=== PATIENT | male | born 1950 | race Caucasian/White ===

== ENCOUNTER 2017-10-12 12:00 | Inpatient (IN) | payer MEDICAID ==
[~2017-10-12] VITALS: Ht 175.3 cm; Wt 73.8 kg
[2017-10-12] MEDS ORDERED: CHOLESTEROL MED (12:03)
[2017-10-12] MEDS ORDERED: HTN (12:03)
[2017-10-12 13:14] LABS: BASOPHILS % (AUTO) 0.5 % (0.0-2.0); EOSINOPHILS % (AUTO) 2.9 % (1.0-6.0); HEMATOCRIT 51.2 % (41-53); HEMOGLOBIN 17.1 g/dL (13.5-17.5); LYMPHOCYTES # (AUTO) 2.1 K/uL (1.0-4.8); LYMPHOCYTES % (AUTO) 22.4 % (22.0-44.0); MEAN CORPUSCULAR HEMOGLOBIN 30.9 pg (26.0-34.0); MEAN CORPUSCULAR HGB CONC 33.4 G/dL (31.0-37.0); MEAN CORPUSCULAR VOLUME 93 fL (80-100); MONOCYTES # (AUTO) 1.5 K/uL (0.1-1.0); MONOCYTES % (AUTO) 15.3 % (2.0-9.0); NEUTROPHILS # (AUTO) 5.6 K/uL (1.8-7.7); NEUTROPHILS % (AUTO) 58.9 % (40.0-70.0); PLATELET COUNT (AUTO) 127 K/uL (150-450); RED BLOOD CELL COUNT(AUTO) 5.54 MIL/uL (4.50-5.90); RED CELL DISTRIBUTION WIDTH 13.9 % (11.5-14.5)
[2017-10-12] MEDS ORDERED: HEPARIN SODIUM,PORCINE 5,000 UNITS/ML VIAL IVP ONE (13:15)
[2017-10-12] MEDS ORDERED: DILTIAZEM HCL 5 MG/ML 5 ML VIAL IVP ONE (13:15)
[2017-10-12] MEDS ORDERED: HEPARIN SODIUM 25000 UNITS/D5W 250 ML IV PRN (13:15)
[2017-10-12] MEDS ORDERED: HEPARIN SODIUM,PORCINE 5,000 UNITS/ML VIAL IVP PRN ×2 (13:15)
[2017-10-12 13:22] LABS: APPEARANCE,URINE CLEAR (CLEAR); BILIRUBIN,URINE NEGATIVE (NEGATIVE); GLUCOSE, URINE (UA) NEGATIVE (NEGATIVE); KETONES,URINE NEGATIVE (NEGATIVE); LEUKOCYTE ESTERASE ,URINE NEGATIVE (NEGATIVE); NITRATE,URINE NEGATIVE (NEGATIVE); OCCULT BLOOD,URINE NEGATIVE (NEGATIVE); PH,URINE 6.5 (5.0-8.0)
[2017-10-12 13:30] LABS: ANION GAP 4 mmol/L (8-16); CALCIUM, TOTAL 9.1 mg/dL (8.8-10.5); CARBON DIOXIDE 31 mmol/L (22-29); CHLORIDE 103 mmol/L (98-107); CREATININE 1.31 mg/dL (0.60-1.30); GLOMERULAR FILTR. RATE CALC 55 mL/min (>60); GLUCOSE,RANDOM 94 mg/dL (70-110); POTASSIUM 3.3 mmol/L (3.5-5.1); SODIUM SERUM 138 mmol/L (136-145); UREA NITROGEN, BLOOD 22 mg/dL (7-18)
[2017-10-12 13:31] LABS: INR 1.2 (0.9-1.1); PROTHROMBIN TIME 12.9 SEC (9.4-11.6)
[2017-10-12 13:36] LABS: ALANINE AMINOTRANSFERASE 35 U/L (12-78); ALBUMIN 3.5 g/dL (3.4-5.0); ALKALINE PHOSPHATASE 125 U/L (46-116); ASPARTATE AMINOTRANSFERASE 37 U/L (15-37); CREATINE KINASE, TOTAL 47 U/L (39-308); TOTAL PROTEIN, SERUM 8.3 g/dL (6.4-8.2)
[2017-10-12 13:39] LABS: B-TYPE NATRIURETIC PEPTIDE 886 pg/mL (0-100)
[2017-10-12 13:40] LABS: PROTEIN,URINE POS 1+ (NEGATIVE)
[2017-10-12 13:51] LABS: RBC,URINE 0-2 /HPF (0-2); WBC,URINE 0-2 /HPF (0-5)
[2017-10-12 13:52] LABS: BACTERIA,URINE None Seen /HPF (None Seen); RENAL EPITHELIAL CELLS,URINE Rare /LPF (None Seen); SQUAMOUS EPITHELIAL CELL,UR Rare /LPF (None Seen)
[2017-10-12] MEDS ORDERED: ACETAMINOPHEN 325 MG TABLET PO PRN (15:30)
[2017-10-12] MEDS ORDERED: ONDANSETRON HCL 4 MG/2 ML VIAL IVP PRN ×2 (15:30→22:30)
[2017-10-12] MEDS ORDERED: 0.9% SODIUM CHLORIDE 10 ML SYRINGE IVP PRN (15:30)
[2017-10-12] MEDS ORDERED: DILTIAZEM HCL 125 MG in DEXTROSE 5%-WATER 100 ML IV PRN ×2 (15:30→22:59)
[2017-10-12] MEDS ORDERED: PETROLATUM,WHITE 5 GM PACKET JELLY TP ONE (15:30)
[2017-10-12] MEDS ORDERED: POTASSIUM CHLORIDE 20 MEQ ER TABLET PO ONE (16:00)
[2017-10-12] MEDS ORDERED: DIGOXIN 250 MCG/ML 2 ML AMP IVP ONE ×4 (16:00→21:45)
[2017-10-12 20:00] VITALS: BP 166/112
[2017-10-12] MEDS: ASPIRIN 81 MG EC TABLET PO SCH (20:43)
[2017-10-12] MEDS: ATORVASTATIN CALCIUM 20 MG TABLET PO SCH (20:43)
[2017-10-12] MEDS: METOPROLOL TARTRATE 25 MG TABLET PO SCH (20:43)
[2017-10-12] MEDS ORDERED: LORazepam 2 MG/ML VIAL IVP PRN (21:00)
[2017-10-12] MEDS ORDERED: LABETALOL HCL 5 MG/ML 20 ML VIAL IVP PRN (21:45)
[2017-10-12] MEDS ORDERED: FUROSEMIDE 20 MG/2 ML VIAL IVP ONE (21:45)
[2017-10-12] MEDS ORDERED: MORPHINE SULFATE 2 MG/ML SYRINGE IVP PRN ×2 (22:29→23:00)
[2017-10-12] MEDS ORDERED: ZOLPIDEM TARTRATE 5 MG TABLET PO PRN (22:30)
[2017-10-13] VITALS (17 sets, daily range): BP systolic 114–156; BP diastolic 62–115
[2017-10-13] MEDS: NITROGLYCERIN 2% (1 GM=INCH) PACKET TP SCH ×5 (00:14→23:39)
[2017-10-13] MEDS ORDERED: HEPARIN SODIUM,PORCINE 5,000 UNITS/ML VIAL IVP PRN ×2 (01:00)
[2017-10-13 07:20] LABS: BASOPHILS % (AUTO) 1.1 % (0.0-2.0); EOSINOPHILS % (AUTO) 2.3 % (1.0-6.0); HEMATOCRIT 45.4 % (41-53); HEMOGLOBIN 15.4 g/dL (13.5-17.5); LYMPHOCYTES # (AUTO) 2.2 K/uL (1.0-4.8); LYMPHOCYTES % (AUTO) 23.7 % (22.0-44.0); MEAN CORPUSCULAR HEMOGLOBIN 30.7 pg (26.0-34.0); MEAN CORPUSCULAR HGB CONC 33.9 G/dL (31.0-37.0); MEAN CORPUSCULAR VOLUME 91 fL (80-100); MONOCYTES # (AUTO) 1.5 K/uL (0.1-1.0); MONOCYTES % (AUTO) 15.7 % (2.0-9.0); NEUTROPHILS # (AUTO) 5.4 K/uL (1.8-7.7); NEUTROPHILS % (AUTO) 57.2 % (40.0-70.0); PLATELET COUNT (AUTO) 114 K/uL (150-450); RED BLOOD CELL COUNT(AUTO) 5.02 MIL/uL (4.50-5.90); RED CELL DISTRIBUTION WIDTH 13.9 % (11.5-14.5)
[2017-10-13 08:01] LABS: ALANINE AMINOTRANSFERASE 27 U/L (12-78); ALBUMIN 2.8 g/dL (3.4-5.0); ALKALINE PHOSPHATASE 75 U/L (46-116); ANION GAP 8 mmol/L (8-16); ASPARTATE AMINOTRANSFERASE 30 U/L (15-37); BILIRUBIN,TOTAL 1.6 mg/dL (0.1-1.0); CALCIUM, TOTAL 8.1 mg/dL (8.8-10.5); CARBON DIOXIDE 26 mmol/L (22-29); CHLORIDE 103 mmol/L (98-107); CREATININE 1.16 mg/dL (0.60-1.30); GLOMERULAR FILTR. RATE CALC > 60 mL/min (>60); GLUCOSE,RANDOM 99 mg/dL (70-110); SODIUM SERUM 137 mmol/L (136-145); THYROID STIMULATING HORMONE 1.96 uIU/mL (0.36-3.74); UREA NITROGEN, BLOOD 20 mg/dL (7-18)
[2017-10-13 08:18] LABS: POTASSIUM 2.9 mmol/L (3.5-5.1)
[2017-10-13 08:29] LABS: DIGOXIN 0.72 ng/mL (0.90-2.00)
[2017-10-13] MEDS ORDERED: SODIUM BICARBONATE 50 MEQ/50 ML VIAL ONE (08:38)
[2017-10-13] MEDS ORDERED: LIDOCAINE HCL/PF 1% 30 ML VIAL ONE (08:38)
[2017-10-13] MEDS ORDERED: IOHEXOL 300 MG/ML 150 ML VIAL ONE (08:38)
[2017-10-13] MEDS ORDERED: HEPARIN SODIUM 1000 UNITS/NS 1,000 ML ONE (08:38)
[2017-10-13] MEDS ORDERED: POTASSIUM CHL 10 MEQ/WATER 50 ML IV PRN (08:45)
[2017-10-13] MEDS ORDERED: POTASSIUM CHLORIDE 10% 40 MEQ/30 ML LIQUID UDCUP PO PRN ×2 (08:45)
[2017-10-13] MEDS ORDERED: SODIUM CHLORIDE 0.9% 500 ML IV ONE (08:50)
[2017-10-13] MEDS ORDERED: FentaNYL CITRATE-PF 100 MCG/2 ML VIAL ONE (09:38)
[2017-10-13] MEDS ORDERED: MIDAZOLAM HCL 2 MG/2 ML VIAL ONE (09:38)
[2017-10-13] MEDS ORDERED: HEPARIN SODIUM 2,000 UNITS in HEPARIN SODIUM 1000 UNITS/NS 1,000 ML IARTER ONE (09:42)
[2017-10-13] MEDS ORDERED: IOHEXOL 300 MG/ML 150 ML VIAL IARTER ONE (09:45)
[2017-10-13] MEDS ORDERED: FentaNYL CITRATE-PF 100 MCG/2 ML VIAL IVP ONE (09:45)
[2017-10-13] MEDS ORDERED: MIDAZOLAM HCL 2 MG/2 ML VIAL IVP ONE (09:45)
[2017-10-13] MEDS ORDERED: LIDOCAINE 1% 30 ML/SOD BICARB 8.4% 4 ML SQ ONE (09:45)
[2017-10-13 09:55] LABS: B-TYPE NATRIURETIC PEPTIDE 989 pg/mL (0-100)
[2017-10-13] MEDS ORDERED: IOHEXOL 300 MG/ML 50 ML VIAL ONE (10:09)
[2017-10-13] MEDS ORDERED: POTASSIUM CHLORIDE 20 MEQ ER TABLET ONE (10:10)
[2017-10-13] MEDS: POTASSIUM CHLORIDE 20 MEQ ER TABLET PO PRN ×2 (10:48→15:58)
[2017-10-13] MEDS: PANTOPRAZOLE SODIUM 40 MG/VIAL IVP SCH (11:26)
[2017-10-13] MEDS: ATORVASTATIN CALCIUM 20 MG TABLET PO SCH (11:27)
[2017-10-13] MEDS: METOPROLOL TARTRATE 25 MG TABLET PO SCH ×2 (11:27→19:25)
[2017-10-13] MEDS: ASPIRIN 81 MG EC TABLET PO SCH (11:27)
[2017-10-13] MEDS ORDERED: MAGNESIUM SULFATE 2 GM in DEXTROSE 5%-WATER 50 ML IV PRN (16:00)
[2017-10-13] MEDS ORDERED: MAGNESIUM OXIDE 400 MG TABLET PO PRN (16:00)
[2017-10-13] MEDS ORDERED: MAGNESIUM SULFATE 4 GM/WATER 100 ML IV PRN (16:00)
[2017-10-13] MEDS: HEPARIN SODIUM 25000 UNITS/D5W 250 ML IV PRN (22:18)
[2017-10-14] VITALS (8 sets, daily range): BP systolic 125–168; BP diastolic 92–119
[2017-10-14] MEDS: NITROGLYCERIN 2% (1 GM=INCH) PACKET TP SCH ×3 (05:40→18:44)
[2017-10-14 05:47] LABS: HEMATOCRIT 45.2 % (41-53); HEMOGLOBIN 15.5 g/dL (13.5-17.5); LYMPHOCYTES # (AUTO) 2.4 K/uL (1.0-4.8); LYMPHOCYTES % (AUTO) 23.8 % (22.0-44.0); MEAN CORPUSCULAR HEMOGLOBIN 31.2 pg (26.0-34.0); MEAN CORPUSCULAR HGB CONC 34.3 G/dL (31.0-37.0); MEAN CORPUSCULAR VOLUME 91 fL (80-100); MONOCYTES # (AUTO) 1.4 K/uL (0.1-1.0); MONOCYTES % (AUTO) 13.8 % (2.0-9.0); NEUTROPHILS # (AUTO) 6.1 K/uL (1.8-7.7); NEUTROPHILS % (AUTO) 60.4 % (40.0-70.0); PLATELET COUNT (AUTO) 116 K/uL (150-450); RED BLOOD CELL COUNT(AUTO) 4.98 MIL/uL (4.50-5.90); RED CELL DISTRIBUTION WIDTH 13.9 % (11.5-14.5)
[2017-10-14 06:13] LABS: CALCIUM, TOTAL 8.3 mg/dL (8.8-10.5); CREATININE 1.22 mg/dL (0.60-1.30); MAGNESIUM 1.6 mg/dL (1.80-2.40); POTASSIUM 3.7 mmol/L (3.5-5.1)
[2017-10-14] MEDS: ATORVASTATIN CALCIUM 20 MG TABLET PO SCH (08:13)
[2017-10-14] MEDS: PANTOPRAZOLE SODIUM 40 MG/VIAL IVP SCH (08:13)
[2017-10-14] MEDS: METOPROLOL TARTRATE 25 MG TABLET PO SCH ×2 (08:13→20:11)
[2017-10-14] MEDS: ASPIRIN 81 MG EC TABLET PO SCH (08:13)
[2017-10-14] MEDS: LORazepam 1 MG TABLET PO PRN ×2 (08:13→18:44)
[2017-10-14] MEDS: HEPARIN SODIUM 25000 UNITS/D5W 250 ML IV PRN (16:11)
[2017-10-15] VITALS (7 sets, daily range): BP systolic 130–163; BP diastolic 72–110
[2017-10-15] MEDS: NITROGLYCERIN 2% (1 GM=INCH) PACKET TP SCH ×5 (00:28→23:28)
[2017-10-15] MEDS: HYDROCODONE/ACETAMINOPHEN 5-325 MG TABLET PO PRN ×2 (04:13→23:34)
[2017-10-15 05:49] LABS: BASOPHILS % (AUTO) 0.6 % (0.0-2.0); EOSINOPHILS % (AUTO) 1.2 % (1.0-6.0); HEMATOCRIT 45.9 % (41-53); HEMOGLOBIN 15.6 g/dL (13.5-17.5); LYMPHOCYTES # (AUTO) 1.6 K/uL (1.0-4.8); LYMPHOCYTES % (AUTO) 18.7 % (22.0-44.0); MEAN CORPUSCULAR HEMOGLOBIN 30.9 pg (26.0-34.0); MEAN CORPUSCULAR VOLUME 91 fL (80-100); MONOCYTES # (AUTO) 1.4 K/uL (0.1-1.0); MONOCYTES % (AUTO) 16.4 % (2.0-9.0); NEUTROPHILS # (AUTO) 5.5 K/uL (1.8-7.7); NEUTROPHILS % (AUTO) 63.1 % (40.0-70.0); PLATELET COUNT (AUTO) 112 K/uL (150-450); RED BLOOD CELL COUNT(AUTO) 5.04 MIL/uL (4.50-5.90); RED CELL DISTRIBUTION WIDTH 13.9 % (11.5-14.5)
[2017-10-15 06:11] LABS: ALANINE AMINOTRANSFERASE 27 U/L (12-78); ALBUMIN 2.9 g/dL (3.4-5.0); ALKALINE PHOSPHATASE 72 U/L (46-116); ANION GAP 10 mmol/L (8-16); ASPARTATE AMINOTRANSFERASE 34 U/L (15-37); BILIRUBIN,TOTAL 1.6 mg/dL (0.1-1.0); CALCIUM, TOTAL 8.1 mg/dL (8.8-10.5); CARBON DIOXIDE 24 mmol/L (22-29); CHLORIDE 103 mmol/L (98-107); CREATININE 0.99 mg/dL (0.60-1.30); GLOMERULAR FILTR. RATE CALC > 60 mL/min (>60); GLUCOSE,RANDOM 104 mg/dL (70-110); POTASSIUM 3.3 mmol/L (3.5-5.1); SODIUM SERUM 137 mmol/L (136-145); TOTAL PROTEIN, SERUM 7.3 g/dL (6.4-8.2); UREA NITROGEN, BLOOD 15 mg/dL (7-18)
[2017-10-15 08:18] LABS: B-TYPE NATRIURETIC PEPTIDE 1240 pg/mL (0-100)
[2017-10-15] MEDS: PANTOPRAZOLE SODIUM 40 MG/VIAL IVP SCH (08:21)
[2017-10-15] MEDS: ATORVASTATIN CALCIUM 20 MG TABLET PO SCH (08:21)
[2017-10-15] MEDS: ASPIRIN 81 MG EC TABLET PO SCH (08:22)
[2017-10-15] MEDS: POTASSIUM CHLORIDE 20 MEQ ER TABLET PO PRN (08:22)
[2017-10-15] MEDS: METOPROLOL TARTRATE 25 MG TABLET PO SCH ×2 (08:22→20:52)
[2017-10-15] MEDS: HEPARIN SODIUM 25000 UNITS/D5W 250 ML IV PRN (10:20)
[2017-10-15] MEDS ORDERED: FUROSEMIDE 20 MG/2 ML VIAL IVP ONE (11:00)
[2017-10-15] MEDS: LORazepam 1 MG TABLET PO PRN (11:02)
[2017-10-16 04:18] VITALS: BP 129/97
[2017-10-16] MEDS: NITROGLYCERIN 2% (1 GM=INCH) PACKET TP SCH ×2 (05:44→13:56)
[2017-10-16 06:33] LABS: BASOPHILS % (AUTO) 0.9 % (0.0-2.0); HEMATOCRIT 49.2 % (41-53); HEMOGLOBIN 16.8 g/dL (13.5-17.5); LYMPHOCYTES % (AUTO) 24.2 % (22.0-44.0); MEAN CORPUSCULAR HEMOGLOBIN 31.1 pg (26.0-34.0); MEAN CORPUSCULAR HGB CONC 34.2 G/dL (31.0-37.0); MEAN CORPUSCULAR VOLUME 91 fL (80-100); MONOCYTES # (AUTO) 1.4 K/uL (0.1-1.0); MONOCYTES % (AUTO) 16.9 % (2.0-9.0); NEUTROPHILS # (AUTO) 4.5 K/uL (1.8-7.7); PLATELET COUNT (AUTO) 121 K/uL (150-450); RED BLOOD CELL COUNT(AUTO) 5.41 MIL/uL (4.50-5.90); RED CELL DISTRIBUTION WIDTH 14.3 % (11.5-14.5)
[2017-10-16 07:09] LABS: ANION GAP 6 mmol/L (8-16); CARBON DIOXIDE 30 mmol/L (22-29); CHLORIDE 103 mmol/L (98-107); CREATININE 1.19 mg/dL (0.60-1.30); GLOMERULAR FILTR. RATE CALC > 60 mL/min (>60); GLUCOSE,RANDOM 95 mg/dL (70-110); POTASSIUM 4.4 mmol/L (3.5-5.1); SODIUM SERUM 139 mmol/L (136-145); UREA NITROGEN, BLOOD 18 mg/dL (7-18)
[2017-10-16 07:18] VITALS: BP 152/90
[2017-10-16 07:49] LABS: B-TYPE NATRIURETIC PEPTIDE 1510 pg/mL (0-100)
[2017-10-16] MEDS: ATORVASTATIN CALCIUM 20 MG TABLET PO SCH (08:11)
[2017-10-16] MEDS: METOPROLOL TARTRATE 25 MG TABLET PO SCH (08:12)
[2017-10-16] MEDS: ASPIRIN 81 MG EC TABLET PO SCH (08:12)
[2017-10-16] MEDS: PANTOPRAZOLE SODIUM 40 MG/VIAL IVP SCH (08:12)
[2017-10-16] MEDS: HEPARIN SODIUM 25000 UNITS/D5W 250 ML IV PRN (08:26)
[2017-10-16 11:17] VITALS: BP 144/90
[2017-10-16] MEDS: LORazepam 1 MG TABLET PO PRN (14:00)
[2017-10-16 15:00] VITALS: BP 140/88
== END 2017-10-16 15:15 | disposition short-term general hospital (02) | DRG 192 ==
LOC: EMS 12:02 → ICU 17:39 → 5S 10-14 16:25
PROVIDERS: ADMIT Internal Medicine; ATTEND Internal Medicine
PROC: 4A023N8 Measurement of Cardiac Sampling and Pressure, Bilateral, Percutaneous Approach (ICD-10-PCS; principal; 2017-10-13)
PROC: B2111ZZ Fluoroscopy of Multiple Coronary Arteries using Low Osmolar Contrast (ICD-10-PCS; 2017-10-13)
DX: I13.0 Hypertensive heart and chronic kidney disease with heart failure and stage 1 through stage 4 chronic kidney disease, or unspecified chronic kidney disease (principal); D69.6 Thrombocytopenia, unspecified; I27.20 Pulmonary hypertension, unspecified; I48.91 Unspecified atrial fibrillation; I50.31 Acute diastolic (congestive) heart failure; I65.29 Occlusion and stenosis of unspecified carotid artery; I25.10 Atherosclerotic heart disease of native coronary artery without angina pectoris; E87.6 Hypokalemia; I35.0 Nonrheumatic aortic (valve) stenosis; B19.20 Unspecified viral hepatitis C without hepatic coma; E78.00 Pure hypercholesterolemia, unspecified; E78.5 Hyperlipidemia, unspecified; F10.20 Alcohol dependence, uncomplicated; I35.2 Nonrheumatic aortic (valve) stenosis with insufficiency; J44.9 Chronic obstructive pulmonary disease, unspecified; I50.9 Heart failure, unspecified; N18.9 Chronic kidney disease, unspecified; F17.210 Nicotine dependence, cigarettes, uncomplicated; Z79.899 Other long term (current) drug therapy
CPT/HCPCS: 83735; 84132; 84443; 87081; 93005; 93306; 93460; 93880; 96365; 96366; 96368; 96375; 96376; 99291; C9113; J1160; J1644; J1940; J2060; J2250; J2270; J3010; J3475; J3490; J7040; J7060; Q9967